=== PATIENT | male | born 1930 | race Caucasian/White ===

== ENCOUNTER 2017-01-13 13:24 | Inpatient (IN) | payer MEDICARE ==
[~2017-01-13] VITALS: Ht 177.8 cm; Wt 82.6 kg
[2017-01-13 02:00] VITALS: BP 127/72
[2017-01-13 13:24] VITALS: BP 125/70
[~2017-01-13 13:24] MED LIST: 'TENORMIN50 MG PO; ASPIR LOW81 MG PO; LIPITOR10 MG PO; POTASSIUM CHLO10 MEQ PO
[2017-01-13] MEDS ORDERED: NEURONTIN300 MG PO (13:34)
[2017-01-13] MEDS ORDERED: HYDROCHLOROTH12.5 M3 PO (13:34)
[2017-01-13 13:43] LABS: BASO % 0.2 % (0.0-1.0); EOS # 0.1 10*3/uL (0.0-0.4); EOS % 0.9 % (1.0-4.0); HEMATOCRIT 38.1 % (42.0-52.0); HEMOGLOBIN 13.2 g/dl (14.0-18.0); IG # 0.1 10*3/uL (0.0-0.1); MEAN CORPUSCULAR HGB 31.9 pg (27.0-31.0); MEAN CORPUSCULAR HGB CONC 34.6 g/dl (33.0-37.0); MEAN PLATELET VOLUME 8.2 fl (9.6-12.3); MONO # 1.3 10*3/uL (0.1-1.0); MONO % 10.3 % (3.0-9.0); NEUT # 9.8 10*3/uL (2.3-7.9); NEUT % 80.1 % (47.0-73.0); PLATELET COUNT AUTOMATED 193 10*3/uL (130-400); RED BLOOD COUNT 4.14 10*6/uL (4.50-5.90); RED CELL DISTRI WIDTH 13.1 % (0-14.5); WHITE BLOOD COUNT 12.2 10*3/uL (4.8-10.8)
[2017-01-13 14:01] LABS: ALBUMIN 3.4 gm/dl (3.1-4.5); ALKALINE PHOSPHATASE 65 U/L (45-117); BILIRUBIN, TOTAL 0.6 mg/dl (0.2-1.0); BUN 18 mg/dl (7-24); CARBON DIOXIDE 26 mmol/L (21-32); CHLORIDE 99 mmol/L (98-107); EST GLOM FILT AFRICAN AMERICAN > 60 ml/min; GLUCOSE 118 mg/dL (65-99); MAGNESIUM 2.1 mg/dL (1.5-2.1); POTASSIUM 3.5 mmol/L (3.5-5.1); SGOT/AST 17 IU/L (3-35); SGPT/ALT 22 U/L (12-78); SODIUM 136 mmol/L (136-145); TOTAL PROTEIN 6.3 gm/dL (6.4-8.2)
[2017-01-13 14:10] LABS: TROPONIN I 0.091 ng/ml (<0.045)
[2017-01-13 14:18] VITALS: BP 136/68
[2017-01-13 15:30] VITALS: BP 170/86
[2017-01-13 18:38] LABS: CKMB 1.6 ng/ml (0.5-3.6)
[2017-01-13 20:00] VITALS: BP 127/72
[2017-01-14] VITALS: BP 160/79
[2017-01-14 00:52] LABS: CKMB 0.6 ng/ml (0.5-3.6)
[2017-01-14 04:00] VITALS: BP 150/70
[2017-01-14 06:17] LABS: BASO % 0.2 % (0.0-1.0); EOS # 0.2 10*3/uL (0.0-0.4); EOS % 2.1 % (1.0-4.0); HEMATOCRIT 41.8 % (42.0-52.0); HEMOGLOBIN 14.5 g/dl (14.0-18.0); IG # 0.1 10*3/uL (0.0-0.1); LYMPH # 1.3 10*3/uL (1.3-4.4); LYMPH % 12.9 % (27.0-41.0); MEAN CELL VOLUME 94.1 fl (80.0-94.0); MEAN CORPUSCULAR HGB 32.7 pg (27.0-31.0); MEAN CORPUSCULAR HGB CONC 34.7 g/dl (33.0-37.0); MEAN PLATELET VOLUME 8.4 fl (9.6-12.3); MONO # 1.2 10*3/uL (0.1-1.0); MONO % 11.9 % (3.0-9.0); NEUT # 7.2 10*3/uL (2.3-7.9); NEUT % 72.4 % (47.0-73.0); PLATELET COUNT AUTOMATED 192 10*3/uL (130-400); RED BLOOD COUNT 4.44 10*6/uL (4.50-5.90); RED CELL DISTRI WIDTH 13.2 % (0-14.5)
[2017-01-14 06:25] LABS: CKMB 1.3 ng/ml (0.5-3.6)
[2017-01-14 06:43] LABS: PROTHROMBIN TIME 10.4 SECONDS (9.0-12.4)
[2017-01-14 06:44] LABS: BUN 13 mg/dl (7-24); CARBON DIOXIDE 29 mmol/L (21-32); CHLORIDE 100 mmol/L (98-107); CHOLESTEROL 175 mg/dL (<200); EST GLOM FILT AFRICAN AMERICAN > 60 ml/min; FREE T4 1.04 ng/dl (0.76-1.46); GLUCOSE 94 mg/dL (65-99); HDL CHOLESTEROL 62 mg/dl (40-60); LDL CHOLESTEROL 96 mg/dL (9-159); POTASSIUM 3.8 mmol/L (3.5-5.1); SODIUM 136 mmol/L (136-145); TRIGLYCERIDES 85 mg/dl (<150); VLDL CHOLESTEROL 17 mg/dL (6-40)
[2017-01-14 07:20] LABS: HEMOGLOBIN A1c 5.8 % (4.8-5.6)
[2017-01-14 07:39] LABS: VITAMIN D, 25-HYDROXY 28.3 ng/mL (30-100)
[2017-01-14 07:40] LABS: FOLIC ACID 18.78 ng/mL (>5.38)
[2017-01-14 08:00] VITALS: BP 150/73
[2017-01-14 12:00] VITALS: BP 128/72
[2017-01-14 16:00] VITALS: BP 112/65
[2017-01-14 20:00] VITALS: BP 101/78
[2017-01-15] VITALS: BP 172/80
[2017-01-15 07:57] VITALS: BP 132/74
[2017-01-15 12:00] VITALS: BP 114/68
[2017-01-15 16:00] VITALS: BP 150/82
[2017-01-15 20:00] VITALS: BP 156/73
[2017-01-16] VITALS: BP 150/74
[2017-01-16 08:00] VITALS: BP 124/66
[2017-01-16 12:00] VITALS: BP 136/76
[2017-01-16] MEDS ORDERED: D-1000 185 MG-11 TAB PO (12:01)
[2017-01-16] MEDS ORDERED: TYLENOL325 M2 PO (12:01)
[2017-01-16] MEDS ORDERED: GABAPENTIN TAB600 MG PO (12:06)
== END 2017-01-16 15:02 | disposition other institution (70) | DRG 641 ==
LOC: ED 13:24 → 4E 14:28 → EDHOLD 14:28 → 4E 14:34
PROVIDERS: Emergency Medicine; Internal Medicine
DX: E86.0 Dehydration (principal); B02.29 Other postherpetic nervous system involvement; E44.1 Mild protein-calorie malnutrition; B02.21 Postherpetic geniculate ganglionitis; D64.9 Anemia, unspecified; I35.1 Nonrheumatic aortic (valve) insufficiency; B02.9 Zoster without complications; I45.10 Unspecified right bundle-branch block; I05.1 Rheumatic mitral insufficiency; E55.9 Vitamin D deficiency, unspecified; D72.825 Bandemia; Z66 Do not resuscitate; R73.9 Hyperglycemia, unspecified; E78.5 Hyperlipidemia, unspecified; I10 Essential (primary) hypertension; Z71.6 Tobacco abuse counseling; Z72.0 Tobacco use; Z68.26 Body mass index [BMI] 26.0-26.9, adult; Z79.82 Long term (current) use of aspirin; Z79.899 Other long term (current) drug therapy

== ENCOUNTER → 2017-02-07 | Outpatient (CLI) | payer MEDICARE ==
[~2017-02-07] MED LIST changes: +D-1000 185 MG-11 TAB PO; +GABAPENTIN TAB600 MG PO; +HYDROCHLOROTH12.5 M3 PO; +NEURONTIN300 MG PO; +TYLENOL325 M2 PO
== END | disposition home or self-care (01) ==
LOC: RAD 10:26
DX: M47.892 Other spondylosis, cervical region (principal)

== ENCOUNTER 2017-06-03 18:11 | Emergency (ER) | payer MEDICARE ==
[~2017-06-03] VITALS: Ht 177.8 cm; Wt 78.0 kg
== END 2017-06-03 20:10 | disposition home or self-care (01) ==
LOC: ED 18:11
DX: S61.412A Laceration without foreign body of left hand, initial encounter (principal); F10.10 Alcohol abuse, uncomplicated; Z79.82 Long term (current) use of aspirin; Z79.899 Other long term (current) drug therapy; W07.XXXA Fall from chair, initial encounter; Y93.89 Activity, other specified; Y92.89 Other specified places as the place of occurrence of the external cause; Y99.9 Unspecified external cause status

== ENCOUNTER 2017-10-24 00:11 | Inpatient (IN) | payer MEDICARE ==
[~2017-10-24] VITALS: Ht 177.8 cm; Wt 79.1 kg
[2017-10-24] VITALS (25 sets, daily range): BP systolic 78–170; BP diastolic 38–100
--- NOTE | ~2017-10-24 | O ---
[place], [place] OPERATIVE NOTE NAME: VIJAY WADE UNIT #: [id number] ROOM: [facility] DOCTOR: ELISABETH MCFADDEN MD BIRTHDATE: [birth year] DOS: 10/25/2017 GASTROENDOSCOPIC REPORT INDICATIONS: An 87-year-old patient who has presented with GI bleed, undergoing the investigation. The patient has been kept in the ICU and managed for GI bleed, status post transfusion 2 units of packed cells. Sandostatin drip platelet transfusion. The patient's CT scan of the abdomen. Colonic diverticulosis, multiple bladder diverticula, thinking of the bladder, cholelithiasis and fibrotic changes of the lungs. His last H and H after transfusion is 10 and 29. His platelet count 214. PROCEDURE: Today's procedure part of investigation is panendoscopy and flexible sigmoidoscopy. PREMEDICATION: Versed and Diprivan. SCOPE: Olympus forward-viewing gastroscope Q10 video. REPORT: After putting the patient in left lateral position and application of lubricant to the scope, the scope was introduced. Thereafter, under direct visualization, I advanced through the length of esophagus without difficulty. Small hiatal hernia was noticed. Gastric pouch was entered. Gastritis, gastric erosions seen. No active bleeding in the gastric pouch was identified. No residual blood seen; however, there was evidence of gastroparesis with retention of food from yesterday in the duodenum and in the gastric pouch photographed. No evidence of active bleeding seen except gastric erosions and gastritis. The patient extubated, tolerated the procedure well. Biopsy obtained from margin of the erosion. IMPRESSION: A small hiatal hernia, gastritis, gastric erosions, gastrectasis with retention of food in the gastric pouch and duodenum. PLAN AND DISCUSSION: We are going to proceed with lower endoscopy. [place], [place] OPERATIVE NOTE NAME: VIJAY WADE UNIT #: [id number] ROOM: [facility] DOCTOR: ELISABETH MCFADDEN MD BIRTHDATE: [birth year] ELISABETH MCFADDEN MD CM:OPRECORD:OPERATIVE NOTE 1058 1125 ELISABETH MCFADDEN MD 10/25/17 1125 interface
--- NOTE | ~2017-10-24 | CON ---
[place], [place] REPORT OF CONSULTATION [id number] UNIT #: [id number] ROOM: [facility] DOCTOR: ELISABETH MCFADDEN MD BIRTHDATE: [birth year] DOS: 10/25/2017 HISTORY OF PRESENT ILLNESS: An 87-year-old patient who has presented with chief complaint of GI bleed. His initial H and H was 17 and 51. He received 4 units of packed cells and his H and H sustained at 10 and 29. He was tachycardic and hypotensive. His platelet function test was done. His collagen and EPI test greater than 300, signifying platelet malfunction secondary to aspirin product. This was addressed with platelet infusion. His comprehensive metabolic panel addressed. Electrolyte balance and liver function tests, normal. Lactic acid 1.9, INR was 1.0, PT/PTT normal, otherwise CT scan of the abdomen and pelvis was obtained, colonic severe diverticulosis, hypertrophy of the median lobe of the prostate, bladder diverticula, cholelithiasis, fibrotic change of base of the lungs, hiatal hernia, and exophytic lesion arising from the lateral cortex of the right kidney, all has been reported on CT scan. The patient continued with GI bleeding in ICU. The patient was placed on Sandostatin 50 mcg drip as well and the patient and family did not want to proceed with any interventional means. Their decision; however, changed this morning at 9:00 and they agreed to proceed with endoscopic assessment. I approach the family and the patient at the bedside in presence of each other and the patient change his mind that he would like to undergo endoscopy. Possible complication and the procedure was discussed with them and they are willing to proceed. PAST MEDICAL HISTORY: Atrial fibrillation, hiatal hernia, benign prostatic hypertrophy, pulmonary fibrosis, GI bleed, hypertension, cholelithiasis, all is known. PAST SURGICAL HISTORY: Lower back. SOCIAL HISTORY: Cigar user and social alcohol. FAMILY HISTORY: Noncontributory. ALLERGIES: To no known medications. MEDICATIONS: Medication has been included aspirin and naproxen as well as omeprazole. REVIEW OF SYSTEMS: HEENT: Denies double vision, blurred vision. RESPIRATORY: Admits chronic shortness of breath. CARDIOVASCULAR: Denies chest pain. DIGESTIVE SYSTEM: GI bleed. PHYSICAL EXAMINATION: VITAL SIGNS: Stable. HEENT: Head normocephalic, nontraumatic. Mouth and buccal mucosa benign. NECK: Supple, no thyromegaly, no cervical lymphadenopathy. CHEST: Symmetric anatomy. LUNGS: Few rhonchi at the base, decreased air entry in general. HEART: Atrial fibrillation, moderate ventricular response. [place], [place] REPORT OF CONSULTATION NAME: VIJAY WADE UNIT #: [id number] ROOM: [facility] DOCTOR: ELISABETH MCFADDEN MD BIRTHDATE: [birth year] ABDOMEN: Soft. No hepato-organomegaly. Bowel sounds within normal limit. EXTREMITIES: No cyanosis, no pedal edema. NEUROLOGIC: Alert, oriented to time, place, person. IMPRESSION: Gastrointestinal bleed, ruling out upper GI versus lower bleed; peptic ulcers versus diverticular bleed, status post ICU management of the GI bleed. The patient has agreed now this morning to have endoscopic assessment and therapeutics. This is change in mind, since admission he did not want to have intervention and investigation done, otherwise. Thus, decision has been changed this morning at 9:00 a.m. by family and the patient. We will proceed with EGD colon. ELISABETH MCFADDEN MD CM:CONSTR:REPORT OF CONSULTATION 1033 10/26/17 0039 interface
--- NOTE | ~2017-10-24 | O ---
[place], [place] OPERATIVE NOTE NAME: [facility]ADE [id number] UNIT #: [id number] ROOM: [facility] DOCTOR: LESA HALL,ELISABETH BIRTHDATE: [birth year] DOS: 10/25/2017 GASTROENDOSCOPIC REPORT INDICATIONS: An 87-year-old patient who presented with GI bleed, undergoing investigation. PROCEDURE: Today's procedure part of investigation is flexible sigmoidoscopy. PREMEDICATION: Propofol. SCOPE: Olympus folding colonoscope 10L video. REPORT: After putting the patient in left lateral position and application of lubricant to rectal pouch and digital examination, scope was introduced into the rectum. Rectal pouch and the rest of the sigmoid colon approximately 60 cm, there was approach, there is jet black tarry stool in the colon visualization practically only 2%-3% and photographic series obtained. No meaningful data can be produced except black tarry stool in the colon. The patient extubated, tolerated the procedure well. IMPRESSION: Status post flexible sigmoidoscopy with presence of black tarry stool in the colon. PLAN AND DISCUSSION: This gentleman most likely has had upper GI bleed and this is the residual blood, which is right now deposited in the colon and I trust that we should continue with the Sandostatin and supportive management and follow up on his H and H and clear liquid until the residual blood is out of his system. We have to withhold the anticoagulants. There was no red blood in the colon to consider diverticular bleed. Other differentials of course are on the list; however, we are going to continue with the same trend unless it becomes necessary to do a CTA of the abdomen and/or beyond the studies. ELISABETH MCFADDEN MD CM:OPRECORD:OPERATIVE NOTE 1058 1130 ELISABETH MCFADDEN MD 10/25/17 1129 interface
[2017-10-24 00:45] LABS: BASO % 0.4 % (0.0-1.0); EOS # 0.1 10*3/uL (0.0-0.4); EOS % 0.9 % (1.0-4.0); HEMOGLOBIN 12.5 g/dl (14.0-18.0); LYMPH # 0.5 10*3/uL (1.3-4.4); LYMPH % 6.6 % (27.0-41.0); MEAN CELL VOLUME 92.7 fl (80.0-94.0); MEAN CORPUSCULAR HGB 31.3 pg (27.0-31.0); MEAN CORPUSCULAR HGB CONC 33.8 g/dl (33.0-37.0); MEAN PLATELET VOLUME 9.2 fl (9.6-12.3); MONO # 0.6 10*3/uL (0.1-1.0); MONO % 7.2 % (3.0-9.0); NEUT # 6.9 10*3/uL (2.3-7.9); PLATELET COUNT AUTOMATED 183 10*3/uL (130-400); RED BLOOD COUNT 3.99 10*6/uL (4.50-5.90); RED CELL DISTRI WIDTH 12.8 % (0-14.5); WHITE BLOOD COUNT 8.2 10*3/uL (4.8-10.8)
[2017-10-24 00:55] LABS: ACT PARTIAL THROMBO TIME 24.5 SECONDS (20.8-31.5)
[2017-10-24 01:03] LABS: ALBUMIN 3.1 gm/dl (3.1-4.5); ALKALINE PHOSPHATASE 56 U/L (45-117); BUN 30 mg/dl (7-24); CHLORIDE 98 mmol/L (98-107); CREATININE 0.85 mg/dL (0.70-1.30); LIPASE 141 U/L (73-393); POTASSIUM 4.4 mmol/L (3.5-5.1); SGOT/AST 16 IU/L (3-35); SGPT/ALT 21 U/L (12-78); SODIUM 135 mmol/L (136-145); TOTAL PROTEIN 5.8 gm/dL (6.4-8.2); TROPONIN I 0.032 ng/ml (<0.045)
[2017-10-24 02:25] LABS: BILIRUBIN NEGATIVE (NEGATIVE); BLOOD TRACE-INTACT (NEGATIVE); CLARITY CLEAR (CLEAR); COLOR YELLOW (YELLOW); GLUCOSE NEGATIVE (NEGATIVE); KETONE NEGATIVE (NEGATIVE); LEUKO ESTERASE NEGATIVE (NEGATIVE); NITRITE NEGATIVE (NEGATIVE); UROBILINOGEN 0.2 E.U./dl (0.2-1.0)
[2017-10-24] MEDS ORDERED: ALEVE220 M1 PO (03:30)
[2017-10-24] MEDS ORDERED: METOPROLOL SUCC25 M2 PO (03:48)
[2017-10-24] MEDS ORDERED: OMEPRAZOLE20 M2 PO (03:49)
[2017-10-24] MEDS ORDERED: LISINOPRIL40 MG PO (03:49)
[2017-10-24] MEDS ORDERED: METOCLOPRAMIDE H5 M1 PO (03:50)
[2017-10-24] MEDS ORDERED: Nizoral 2%15 GM T (03:50)
[2017-10-24 05:49] LABS: BASO % 0.3 % (0.0-1.0); EOS % 0.2 % (1.0-4.0); HEMATOCRIT 34.3 % (42.0-52.0); HEMOGLOBIN 11.6 g/dl (14.0-18.0); LYMPH % 9.2 % (27.0-41.0); MEAN CORPUSCULAR HGB 31.8 pg (27.0-31.0); MEAN CORPUSCULAR HGB CONC 33.8 g/dl (33.0-37.0); MONO # 0.8 10*3/uL (0.1-1.0); MONO % 7.4 % (3.0-9.0); NEUT # 8.8 10*3/uL (2.3-7.9); NEUT % 82.2 % (47.0-73.0); PLATELET COUNT AUTOMATED 196 10*3/uL (130-400); RED BLOOD COUNT 3.65 10*6/uL (4.50-5.90); WHITE BLOOD COUNT 10.7 10*3/uL (4.8-10.8)
[2017-10-24 06:30] LABS: ALBUMIN 3.1 gm/dl (3.1-4.5); ALKALINE PHOSPHATASE 58 U/L (45-117); BUN 30 mg/dl (7-24); CHLORIDE 101 mmol/L (98-107); CHOLESTEROL 132 mg/dL (<200); FREE T4 1.03 ng/dl (0.76-1.46); HDL CHOLESTEROL 39 mg/dl (40-60); LDL CHOLESTEROL 73 mg/dL (9-159); SGOT/AST 18 IU/L (3-35); SGPT/ALT 22 U/L (12-78); SODIUM 135 mmol/L (136-145); TOTAL PROTEIN 5.7 gm/dL (6.4-8.2); TRIGLYCERIDES 101 mg/dl (<150); VLDL CHOLESTEROL 20 mg/dL (6-40)
[2017-10-24 06:34] LABS: THYROID STIM HORMONE (HS) 0.575 uIU/ml (0.358-4.75)
[2017-10-24 09:01] LABS: VITAMIN D, 25-HYDROXY 52.5 ng/mL (30-100)
[2017-10-24 15:05] LABS: HEMOGLOBIN 9.7 g/dl (14.0-18.0)
[2017-10-25] VITALS (63 sets, daily range): BP systolic 60–153; BP diastolic 32–116
[2017-10-25 00:05] LABS: HEMOGLOBIN 8.6 g/dl (14.0-18.0)
[2017-10-25 05:54] LABS: HEMATOCRIT 29.2 % (42.0-52.0); HEMOGLOBIN 9.8 g/dl (14.0-18.0)
[2017-10-25 06:10] LABS: ALBUMIN 2.5 gm/dl (3.1-4.5); ALKALINE PHOSPHATASE 43 U/L (45-117); BUN 26 mg/dl (7-24); CHLORIDE 108 mmol/L (98-107); CREATININE 0.85 mg/dL (0.70-1.30); PHOSPHOROUS 3.1 mg/dL (2.5-4.9); POTASSIUM 4.2 mmol/L (3.5-5.1); SGOT/AST 15 IU/L (3-35); SGPT/ALT 18 U/L (12-78); SODIUM 139 mmol/L (136-145); TOTAL PROTEIN 4.6 gm/dL (6.4-8.2)
[2017-10-25 06:14] LABS: BASO % 0.3 % (0.0-1.0); EOS # 0.1 10*3/uL (0.0-0.4); EOS % 0.6 % (1.0-4.0); HEMATOCRIT 29.3 % (42.0-52.0); HEMOGLOBIN 10.2 g/dl (14.0-18.0); LYMPH # 0.4 10*3/uL (1.3-4.4); LYMPH % 3.9 % (27.0-41.0); MEAN CORPUSCULAR HGB CONC 34.8 g/dl (33.0-37.0); MEAN PLATELET VOLUME 10.3 fl (9.6-12.3); MONO # 0.8 10*3/uL (0.1-1.0); MONO % 6.9 % (3.0-9.0); NEUT # 9.5 10*3/uL (2.3-7.9); NEUT % 87.5 % (47.0-73.0); PLATELET COUNT AUTOMATED 214 10*3/uL (130-400); RED BLOOD COUNT 3.29 10*6/uL (4.50-5.90); RED CELL DISTRI WIDTH 16.5 % (0-14.5); WHITE BLOOD COUNT 10.9 10*3/uL (4.8-10.8)
[2017-10-25 06:15] LABS: MEAN CELL VOLUME 89.1 fl (80.0-94.0)
[2017-10-25 11:54] LABS: HEMATOCRIT 23.3 % (42.0-52.0)
[2017-10-25 17:52] LABS: HEMATOCRIT 21.3 % (42.0-52.0); HEMOGLOBIN 7.5 g/dl (14.0-18.0)
[2017-10-25 20:29] LABS: ALKALINE PHOSPHATASE 35 U/L (45-117); BUN 19 mg/dl (7-24); CHLORIDE 109 mmol/L (98-107); CREATININE 0.65 mg/dL (0.70-1.30); POTASSIUM 4.1 mmol/L (3.5-5.1); SGOT/AST 15 IU/L (3-35); SGPT/ALT 13 U/L (12-78); SODIUM 139 mmol/L (136-145); TOTAL PROTEIN 3.7 gm/dL (6.4-8.2)
[2017-10-26] VITALS (29 sets, daily range): BP systolic 100–161; BP diastolic 53–82
[2017-10-26 00:13] LABS: HEMATOCRIT 22.4 % (42.0-52.0); HEMOGLOBIN 7.9 g/dl (14.0-18.0)
[2017-10-26 05:58] LABS: ALBUMIN 1.9 gm/dl (3.1-4.5); ALKALINE PHOSPHATASE 31 U/L (45-117); BUN 17 mg/dl (7-24); CHLORIDE 108 mmol/L (98-107); CREATININE 0.64 mg/dL (0.70-1.30); PHOSPHOROUS 2.2 mg/dL (2.5-4.9); POTASSIUM 4.1 mmol/L (3.5-5.1); SGOT/AST 15 IU/L (3-35); SGPT/ALT 13 U/L (12-78); SODIUM 140 mmol/L (136-145); TOTAL PROTEIN 3.4 gm/dL (6.4-8.2)
[2017-10-26 06:31] LABS: BASO % 0.3 % (0.0-1.0); EOS # 0.1 10*3/uL (0.0-0.4); EOS % 1.6 % (1.0-4.0); HEMATOCRIT 23.2 % (42.0-52.0); HEMOGLOBIN 8.2 g/dl (14.0-18.0); LYMPH # 0.7 10*3/uL (1.3-4.4); LYMPH % 9.8 % (27.0-41.0); MEAN CELL VOLUME 87.5 fl (80.0-94.0); MEAN CORPUSCULAR HGB 30.9 pg (27.0-31.0); MEAN CORPUSCULAR HGB CONC 35.3 g/dl (33.0-37.0); MEAN PLATELET VOLUME 10.4 fl (9.6-12.3); MONO % 13.5 % (3.0-9.0); NEUT # 5.5 10*3/uL (2.3-7.9); RED BLOOD COUNT 2.65 10*6/uL (4.50-5.90); RED CELL DISTRI WIDTH 15.6 % (0-14.5); WHITE BLOOD COUNT 7.5 10*3/uL (4.8-10.8)
[2017-10-26 06:32] LABS: PLATELET COUNT AUTOMATED 127 10*3/uL (130-400)
[2017-10-26 12:28] LABS: HEMATOCRIT 26.7 % (42.0-52.0); HEMOGLOBIN 9.1 g/dl (14.0-18.0)
[2017-10-26] MEDS ORDERED: TEMAZEPAM15 M1 PO (14:48)
[2017-10-26] MEDS ORDERED: FLOMAX0.4 MG PO (14:48)
[2017-10-26] MEDS ORDERED: Carafate1 GM/10 ML PO (14:48)
[2017-10-26] MEDS ORDERED: PROTONIX40 MG PO (15:00)
== END 2017-10-26 20:16 | disposition short-term general hospital (02) | DRG 378 ==
LOC: ED 00:11 → EDHOLD 02:35 → ICCU 02:35 → 4E 02:47 → ICCU 06:41
PROVIDERS: Emergency Medicine Emergency Medical Services; Hospitalist; Internal Medicine; Internal Medicine Gastroenterology
PROC: 30233R1 Transfusion of Nonautologous Platelets into Peripheral Vein, Percutaneous Approach (ICD-10-PCS; 2017-10-24)
PROC: 30233N1 Transfusion of Nonautologous Red Blood Cells into Peripheral Vein, Percutaneous Approach (ICD-10-PCS; 2017-10-24)
PROC: 0DB68ZX Excision of Stomach, Via Natural or Artificial Opening Endoscopic, Diagnostic (ICD-10-PCS; principal; 2017-10-25)
DX: K57.31 Diverticulosis of large intestine without perforation or abscess with bleeding (principal); E44.1 Mild protein-calorie malnutrition; J84.10 Pulmonary fibrosis, unspecified; E87.1 Hypo-osmolality and hyponatremia; E83.51 Hypocalcemia; B02.29 Other postherpetic nervous system involvement; I48.2 Chronic atrial fibrillation; N13.39 Other hydronephrosis; K31.0 Acute dilatation of stomach; N32.3 Diverticulum of bladder; N28.9 Disorder of kidney and ureter, unspecified; K80.20 Calculus of gallbladder without cholecystitis without obstruction; K44.9 Diaphragmatic hernia without obstruction or gangrene; Z66 Do not resuscitate; Z51.5 Encounter for palliative care; N40.1 Benign prostatic hyperplasia with lower urinary tract symptoms; R33.8 Other retention of urine; D64.9 Anemia, unspecified; I11.9 Hypertensive heart disease without heart failure; E78.5 Hyperlipidemia, unspecified; F17.200 Nicotine dependence, unspecified, uncomplicated; R73.9 Hyperglycemia, unspecified; K29.71 Gastritis, unspecified, with bleeding; K25.4 Chronic or unspecified gastric ulcer with hemorrhage; Z68.25 Body mass index [BMI] 25.0-25.9, adult